=== PATIENT | female | born 1980 | race Hispanic/Latino ===

== ENCOUNTER 2024-11-28 20:02 | Emergency (ER) | payer SELFPAY ==
[~2024-11-28] VITALS: Ht 162.6 cm; Wt 78.0 kg
--- NOTE | 2024-11-28 20:27 | ERN ---
ED Note History of Present Illness Stated Complaint: SOB, SWOLLEN LEGS Chief Complaint: Lower Extremity Pain/Injury Time Seen by MD: 20:03 Time Seen by Midlevel: 20:03 Dictation: The patient is a 44-year-old female with a history of cholecystectomy who presents to the emergency department with complaints of shortness of breath with the exertion, body aches, lower extremity swelling, nausea and dizziness for a week. Patient also reports that for the last three months she has been having a longer and heavier menstrual cycles. 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 Reports only one pad used in the last hour. Patient denies any fevers, abdominal pain, vomiting, denies bloody stools, recent falls or recent travel. Allergies: Coded Allergies: No Known Allergies (Unverified Allergy, Unknown, 11/28/24) Past Medical History Past Medical History: No Pertinent History Surgical History: Cholecystectomy LMP: November 28, 2024 RN Note Reviewed/Agreed w/PFSH: Yes Review of System Dictation Constitutional: Negative for fever,chills, and weight loss positive for body aches Eyes: Negative for injury, pain,redness, and discharge ENT: Negative for injury,pain or swelling Cardiovascular: Negative for chest pain, palpitations, and edema Respiratory: Negative for cough, and wheezing, positive for shortness of breath Abdomen/GI: Negative for abdominal pain, vomiting, diarrhea, and constipation positive for nausea Back: Negative for injury and pain : Negative for injury, positive for vaginal bleeding MS/Extremity: Negative for injury and deformity Skin: Negative for rash, and discoloration Neuro: Negative for headache, weakness, numbness, tingling, and seizure Psych: Negative for suicide ideation, homicidal ideation, and hallucinations Initial Vital Sign VS Vital Signs Date Time Temp Pulse Resp B/P (MAP) Pulse Ox O2 Delivery O2 Flow Rate FiO2 11/28/24 20:14 98.4 95 20 143/50 99 Room Air 11/28/24 20:44 0 21 Physical Exam Dictation Vital Signs reviewed General Appearance: Alert, oriented x 3,mildly distress, well developed, nourished. Head and Face: non-traumatic. Eyes: PERRL, pink conjunctivas, eyelid no trauma, anterior chamber with arcus senilis. Ears: Pinnas intact and no signs of trauma or erythema ear canals clear and no discharge TM no erythema Nose: No discharge, no bleeding. Oropharynx: Mouth normal, tongue pink. pharynx clear,no erythema, tonsils no exudates, no abscesses noted, mucous membrane moist Neck: Supple, non-tender, no thyromegaly, no masses, no JVD, no bruits Breast:Deferred Chest:No tenderness, no crepitus, no paradoxical movement, no retractions Lungs:Clear, well-ventilated, symmetric, no rales, no wheezing, no rhonchi, no stridor, good breath sounds bilaterally Heart: Regular rate, regular rhythm, no murmur, no gallops Vascular: 2+ bilateral peripheral edema Abdomen: Soft, positive bowel sounds, nondistended, no guarding, nontender, no rebound, no masses no hepatomegaly, no splenomegaly, no Seay's sign, no hernias. Rectal: Deferred Genital: Mild vaginal bleeding with clots, no wounds Neurological: Normal speech, motor function intact, sensory function intact Musculoskeletal: Neck nontender, full range of motion, back nontender, full range of motion, Extremities: nontender, full range of motion Skin: Color pale, dry, no turgor, no rash, no lacerations, no abrasions, no contusions. Lymphatic: Deferred Results (Laboratory/Radiology) Laboratory/Radiology Laboratory Tests Test 11/28/24 20:21 11/28/24 21:11 Urine Color LIGHT-YELLOW (YELLOW) Urine Appearance CLEAR (CLEAR) Urine pH 6.0 (5.0-8.0) Urine Specific Taylor 1.012 (1.001-1.031) Urine Protein NEGATIVE mg/dL (NEGATIVE) Urine Glucose (UA) NEGATIVE mg/dL (NEGATIVE) Urine Ketones NEGATIVE mg/dL (NEGATIVE) Urine Occult Blood MODERATE (NEGATIVE) H Urine Nitrate NEGATIVE (NEGATIVE) Urine Bilirubin NEGATIVE mg/dL (NEGATIVE) Urine Urobilinogen 0.2 mg/dL (0.2-1.0) Urine Leukocyte Esterase NEGATIVE [place]/uL Urine RBC 11-25 /HPF (0-1) H Urine WBC 2-5 /HPF (0-1) H Urine Squamous Epithelial Cells RARE /HPF (0-2) Urine Bacteria FEW /HPF (None Seen) White Blood Count 6.2 K/uL (4.8-10.8) Red Blood Count 1.44 MIL/uL (4.00-5.50) L Hemoglobin 2.3 g/dL (12.0-16.0) *L Hematocrit 9.5 % (36-48) *L Mean Corpuscular Volume 66.0 fL (79-99) L Mean Corpuscular Hemoglobin 16.0 pg (27.0-33.0) L Mean Corpuscular Hemoglobin Concent 24.2 g/dL (32.0-36.0) L Red Cell Distribution Width 22.6 % (11.0-15.5) H Platelet Count 373 K/uL (130-400) Mean Platelet Volume 11.0 fL (7.5-10.5) H Immature Granulocyte % (Auto) 0.6 % (0-1) Neutrophils (%) (Auto) 67.5 % (40.0-77.0) Lymphocytes (%) (Auto) 19.2 % (21.0-51.0) L Monocytes (%) (Auto) 10.3 % (3.0-13.0) Eosinophils (%) (Auto) 2.4 % (0.0-8.0) Basophils (%) (Auto) 0.0 % (0.0-5.0) Neutrophils # (Auto) 4.2 K/uL (1.8-7.7) Lymphocytes # (Auto) 1.2 K/uL (1.0-4.8) Monocytes # (Auto) 0.6 K/uL (0.1-1.0) Eosinophils # (Auto) 0.15 K/uL (0.00-0.70) Basophils # (Auto) 0.00 K/uL (0.00-0.20) Absolute Immature Granulocyte (auto 0.04 K/uL (0-1) Nucleated Red Blood Cells 1.9 % (0.0-0.19) H Red Blood Cell Morphology See comments Prothrombin Time 12.5 SEC (9.6-11.6) H Prothromb Time International Ratio 1.20 (0.85-1.15) H Activated Partial Thromboplast Time 23.4 SEC (26.3-35.5) L Sodium Level 138 mmol/L (136-145) Potassium Level 4.0 mmol/L (3.5-5.1) Chloride Level 104 mmol/L (101-111) Carbon Dioxide Level 23 mmol/L (21-32) Blood Urea Nitrogen 16 mg/dL (7-18) Creatinine 0.9 mg/dL (0.5-1.0) Glomerular Filtration Rate Calc 80 mL/min (>90) Random Glucose 105 mg/dL (70-105) Total Calcium 8.1 mg/dL (8.5-10.1) L Magnesium Level 2.00 mg/dL (1.80-2.40) Total Bilirubin 0.6 mg/dL (0.2-1.0) Aspartate Amino Transf (AST/SGOT) 16 U/L (10-37) Alanine Aminotransferase (ALT/SGPT) 12 U/L (12-78) Alkaline Phosphatase 76 U/L (50-136) Total Creatine Kinase 33 U/L (21-232) Troponin I High Sensitivity 10 ng/L (4-50) B-Type Natriuretic Peptide 284 pg/mL (0-100) H Total Protein 7.3 g/dL (6.0-8.3) Albumin 3.3 g/dL (3.5-5.0) L Lipase 46 U/L (16-77) Serum Test, Qualitative NEGATIVE (NEGATIVE) REASON: vaginal bleeding ORDERING PHYSICIAN: MAGDY VIGIL PROCEDURE: PELVCOMP - US PELVIC NON-OB COMP US PELVIC NON-OB COMP HISTORY: Vaginal bleeding COMPARISON: None TECHNIQUE: Transabdominal pelvic ultrasound study was performed. FINDINGS: The uterus measures 10.2 x 7 x 7.5 cm. The right ovary measures 2.3 x 2 x 2.9 cm. The left ovary measures 2.2 x 1.6 x 2.2 cm. Endometrial thickness is not well defined measuring 3.2 cm in thickness. Multiple intrauterine masses are seen with the largest measuring 4.9 x 5.2 x 5.3 cm and the largest measuring 2.6 x 2.6 x 2.8 cm suspicious for fibroid uterus. No free fluid is seen in the cul-de-sac. IMPRESSION: 1. No adnexal mass is seen. Suspect fibroid uterus. Labs Reviewed?: Yes EKG: (+) rhythm (Sinus rhythm) EKG Comment: Date:11/28/2024 Time:2029 Ventricular rate:83 WV interval:134 QRS duration:89 QT/QTc:3874 EKG interpretation: Sinus rhythm, nonspecific repolarization Reviewed by ED Attending no STEMI ED Course ED Course Orders Procedure Category Date Status Time Chest 1vw RAD 11/28/24 Taken 20:16 12 Lead Ekg Tracing- EKG 11/28/24 Logged Technical 20:16 Urinalysis Profile LAB 11/28/24 Complete 20:16 Type And Screen BBK 11/28/24 In Process 20:16 Pt And Ptt LAB 11/28/24 Complete 20:16 Us Pelvic Non-Ob Comp US 11/28/24 Resulted 20:16 Pelvic Exam Set Up CPOE 11/28/24 Transmitted (Er) 21:03 Creatine Kinase, Total LAB 11/28/24 Complete 21:06 Comprehensive LAB 11/28/24 Complete Metabolic Panel 21:06 Lipase LAB 11/28/24 Complete 21:06 Magnesium LAB 11/28/24 Complete 21:06 Cbc With Differential LAB 11/28/24 Complete 21:07 B-Type Natriuretic LAB 11/28/24 Complete Peptide 21:07 Testing, LAB 11/28/24 Complete Serum Hcg 21:07 Rbc-No Active Bleeding BBK 11/28/24 In Process 21:27 Rbc-Active Bleeding BBK 11/28/24 In Process 21:27 Nothing By Mouth DIET 11/29/24 Transmitted Breakfast Troponin I High LAB 11/28/24 Complete Sensitivity 21:11 Phytonadione (Vitamin PHA 11/28/24 Complete K 10mg/1ml Adult V 22:00 Medroxyprogesterone PHA 11/28/24 Complete Acet 5mg (Provera 5m 23:00 Calcium Gluc 1gm PHA 11/28/24 In Process (Calcium Gluc 1gm 23:00 0.9%Nacl 50ml (Ns PHA 11/28/24 In Process 50ml) 23:00 Rbc-No Active Bleeding BBK 11/28/24 In Process 22:32 Current Medications Medications (Trade) Dose Ordered Sig/Johnny Route PRN Reason Start Time Stop Time Status Last Admin Dose Admin Calcium Gluconate (Calcium Gluc 1gm Vial) 1 gm PROTOCOL IVPB 11/28/24 23:00 12/28/24 22:59 11/28/24 23:36 Medroxyprogesterone Acetate (PROvera 5MG TAB) 40 mg ONCE ONCE PO 11/28/24 23:00 11/28/24 23:01 DC 11/28/24 23:21 Phytonadione 10 mg/Sodium Chloride 51 ml @ 100 mls/hr ONCE ONCE IVPB 11/28/24 22:00 11/28/24 22:30 DC 11/28/24 23:03 Sodium Chloride (NS 50ml) 50 ml AD IV 11/28/24 23:00 12/28/24 22:59 Vital Signs Date Time Temp Pulse Resp B/P (MAP) Pulse Ox O2 Delivery O2 Flow Rate FiO2 11/29/24 00:00 98.1 65 16 151/55 100 Nasal Cannula* 2 28 11/28/24 23:30 98.1 62 18 153/56 100 Nasal Cannula* 2 28 11/28/24 20:44 98.2 80 16 144/51 98 Room Air* 0 21 11/28/24 20:14 98.4 95 20 143/50 99 Room Air Medical Decision Making MDM MDM: The patient is a 44-year-old female with a history of cholecystectomy who presents to the emergency department with complaints of shortness of breath with the exertion, body aches, lower extremity swelling, nausea and dizziness for a week. Patient also reports that for the last three months she has been having a longer and heavier menstrual cycles. 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 Reports only one pad used in the last hour. Patient denies any fevers, abdominal pain, vomiting, denies bloody stools, recent falls or recent travel. CBC showed no leukocytosis, severe anemia with a hemoglobin 2.3, hematocrit of 9.5, normal platelets, chemistry showed mild hypocalcemia, negative lipase, negative liver enzymes got a BNP slightly elevated at 284, negative , negative troponin, PT slightly elevated at 12.5, INR 1.2 PTT 43.6, urinalysis negative for leukocyte esterase, negative nitrites. Pelvic ultrasound revealed multiple intrauterine masses suspected for fibroid uterus. Patient continues with mild vaginal bleeding. Due to no gynecology service is here patient will be transferred for higher level of care. Patient accepted at [facility]. 2219 Spoke with CHEPE Jj who accepts consultation. Request 40mg of medroxyprogeterone as a single dose. 2226 spoke with Landen Faustin hospitalist who accepts transfer. 2229 Spoke with [facility] Alma who accepts transfer. Differential diagnosis: Anemia, heart failure, electrolyte imbalance, ACS Comorbidities: Cholecystectomy Tests considered and not ordered secondary to shared decision making include: none Previous outside records reviewed: none Risk of complication and/or morbidity or mortality of patient management: The patient meets criteria for admission. Need for emergency major/minor surgery: No There are no social concerns with this patient. I independently interpreted the tests I ordered (labs, urinalysis, etc.). I discussed the case with the hospitalist for admission. PETER Dickens I discussed the case with the following specialists: Sanjeev Jj Historian: pateint. I independently interpreted imaging studies and EKGs that I ordered (US, CT, XR, EKG, etc.). External chart review: none. Medical management and examination interpretation discussions were had by me with other qualified healthcare professionals as indicated for the patient's care. Critical Care Note Critical Time: other (40) Comment(s) Total critical care time was 40 minutes. Excluding time for procedures. Management of critically ill patient with concern for acute decompensation. Management included interpretation of laboratory values and imaging, hemodynamics, time for consultation with consultants and admitting physician. DX & DISP Disposition: Transfer Decision to Admit Date: November 28, 2024 Decision to Admit Time: 23:09 Departure Impression: Primary Impression: Severe anemia Additional Impressions: Vaginal bleeding, Elevated brain natriuretic peptide (BNP) level Condition: Critical Referrals: SELF,REFERRAL (PCP) I have reviewed the case, and I agree with, Diagnosis and Plan MAGDY VIGIL November 28, 2024 20:27
[2024-11-28 20:34] LABS: ADD UA MICROSCOPIC YES; APPEARANCE,URINE CLEAR (CLEAR); BILIRUBIN,URINE NEGATIVE (NEGATIVE); COLOR,URINE LIGHT-YELLOW (YELLOW); GLUCOSE, URINE (UA) NEGATIVE (NEGATIVE); KETONES,URINE NEGATIVE (NEGATIVE); LEUKOCYTE ESTERASE ,URINE NEGATIVE Leu/uL (NEGATIVE); NITRATE,URINE NEGATIVE (NEGATIVE); OCCULT BLOOD,URINE MODERATE (NEGATIVE); PROTEIN,URINE NEGATIVE (NEGATIVE); UROBILINOGEN,URINE 0.2 mg/dL (0.2-1.0)
[2024-11-28 20:37] LABS: BACTERIA,URINE FEW /HPF (None Seen); SQUAMOUS EPITHELIAL CELL,UR RARE /HPF (0-2)
--- NOTE | 2024-11-28 21:16 | HMCIMG ---
US PELVIC NON-OB COMP HISTORY: Vaginal bleeding COMPARISON: None TECHNIQUE: Transabdominal pelvic ultrasound study was performed. FINDINGS: The uterus measures 10.2 x 7 x 7.5 cm. The right ovary measures 2.3 x 2 x 2.9 cm. The left ovary measures 2.2 x 1.6 x 2.2 cm. Endometrial thickness is not well defined measuring 3.2 cm in thickness. Multiple intrauterine masses are seen with the largest measuring 4.9 x 5.2 x 5.3 cm and the largest measuring 2.6 x 2.6 x 2.8 cm suspicious for fibroid uterus. No free fluid is seen in the cul-de-sac. IMPRESSION: 1. No adnexal mass is seen. Suspect fibroid uterus.
[2024-11-28 21:24] LABS: EOSINOPHILS # (AUTO) 0.15 K/uL (0.00-0.70); EOSINOPHILS % (AUTO) 2.4 % (0.0-8.0); IMMATURE GRANULOCYTE ABSOLUTE 0.04 K/uL (0-1); LYMPHOCYTES # (AUTO) 1.2 K/uL (1.0-4.8); LYMPHOCYTES % (AUTO) 19.2 % (21.0-51.0); MEAN CORPUSCULAR HGB CONC 24.2 g/dL (32.0-36.0); MONOCYTES # (AUTO) 0.6 K/uL (0.1-1.0); MONOCYTES % (AUTO) 10.3 % (3.0-13.0); NEUTROPHILS # (AUTO) 4.2 K/uL (1.8-7.7); NEUTROPHILS % (AUTO) 67.5 % (40.0-77.0); NUCLEATED RED BLOOD CELLS 1.9 % (0.0-0.19); PLATELET COUNT (AUTO) 373 K/uL (130-400); RED BLOOD CELL COUNT(AUTO) 1.44 MIL/uL (4.00-5.50); RED CELL DISTRIBUTION WIDTH 22.6 % (11.0-15.5); WHITE BLOOD COUNT (AUTO) 6.2 K/uL (4.8-10.8)
[2024-11-28 21:26] LABS: HEMATOCRIT 9.5 % (36-48)
[2024-11-28 21:33] LABS: INR 1.2 (0.85-1.15); PROTHROMBIN TIME 12.5 SEC (9.6-11.6)
[2024-11-28 21:34] LABS: PARTIAL THROMBOPLASTIN TIME 23.4 SEC (26.3-35.5)
[2024-11-28 21:37] LABS: CREATININE 0.9 mg/dL (0.5-1.0)
[2024-11-28 21:41] LABS: ALBUMIN 3.3 g/dL (3.5-5.0); BILIRUBIN,TOTAL 0.6 mg/dL (0.2-1.0); TOTAL PROTEIN, SERUM 7.3 g/dL (6.0-8.3)
[2024-11-28 21:42] LABS: B-TYPE NATRIURETIC PEPTIDE 284 pg/mL (0-100)
--- NOTE | 2024-11-28 22:05 | NUR ---
TRANSFER: TRANSFER INITIATED TO [facility] FOR CERTIFIED HEALTH EDUCATION SPECIALIST SERVICES WITH DX: OF VAGINAL BLEEDING AND SEVERE ANEMIA. SPOKE WITH SAHARA AT [facility].
[2024-11-28] MEDS ORDERED: 0.9%NACL 50ML IV SCH (23:00)
[2024-11-28] MEDS: PHYTONADIONE 10 MG in 0.9%NACL 50ML 50 ML IVPB ONE (23:03)
--- NOTE | 2024-11-28 23:28 | NUR ---
TRANSFER: CALL PLACED TO [facility] FOR STATUS ON TRANSFER. JOSE, FROM [facility], REPORTS THEY ARE WAITING ON A BED.
[2024-11-28] MEDS: CALCIUM GLUC 1GM/10ML VIAL IVPB SCH (23:36)
--- NOTE | 2024-11-29 00:29 | NUR ---
TRANSFER: CALL RECEIVED FROM [facility] TRANSFER [place] WITH MOT INFORMATION. PATIENT ACCEPTED TO [facility] TO DR. RIMA PULIDO. PATIENT WILL BE GOING TO ICU #[id number].
--- NOTE | 2024-11-29 00:46 | NUR ---
TRANSPORT: CALL PLACED TO [facility] FOR TRANSPORT TO [facility], ICU #[id number].
--- NOTE | 2024-11-29 02:35 | NUR ---
2ND UNIT OF PRBCS COMPELTED AT THIS TIME
--- NOTE | 2024-11-29 02:36 | NUR ---
REPORT GIVEN TO DYLAN FUENTES FROM [facility] ICU ROOM [id number],
[2024-11-29 02:54] LABS: HEMATOCRIT 18.1 % (36-48)
[2024-11-29 02:55] VITALS: BP 140/56; PULSE 58; RESP 16; TEMP 98.5; O2SAT 100
--- NOTE | 2024-11-29 03:00 | NUR ---
PATIENT LEAVING VIA EMS AT THIS TIME
--- NOTE | 2024-11-29 06:42 | EKG ---
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
--- NOTE | 2024-11-29 09:35 | HMCIMG ---
CHEST 1VW HISTORY: Shows of breath COMPARISON: None FINDINGS: A frontal projection of the chest was obtained. No acute pulmonary infiltrates is seen. The heart is borderline enlarged. Degenerative changes are seen. Prominent interstitial markings are seen. No evidence of aortic calcification is seen. IMPRESSION: 1. No acute pulmonary infiltrate is seen.
== END 2024-11-29 03:00 | disposition short-term general hospital (02) ==
LOC: EDH 20:02
DX: D64.9 Anemia, unspecified (principal); N93.9 Abnormal uterine and vaginal bleeding, unspecified; R79.89 Other specified abnormal findings of blood chemistry; Z79.3 Long term (current) use of hormonal contraceptives; Z90.49 Acquired absence of other specified parts of digestive tract
CPT/HCPCS: 99285; 36430; 96365; 76856; 71045; 96375; 82550; 83735; 84484; 80053; 83880; 84703; 83690; 85025; 85610; 85730; 86850; 86900; 86901; 86923 ×2; 81001; 36415 ×2; 93005; 85014; 85018; P9016 ×2; J3430; J0612